=== PATIENT | female | born 1975 | race Asian ===

== ENCOUNTER 2019-04-15 13:49 | Emergency (ER) | payer OTHER ==
[~2019-04-15] VITALS: Ht 167.6 cm; Wt 116.1 kg
[2019-04-15 13:56] VITALS: TEMP 98
[2019-04-15 14:59] VITALS: BP 148/82
== END 2019-04-15 14:59 | disposition home or self-care (01) ==
LOC: ED 13:49
PROC: 2W03XYZ Change Other Device on Abdominal Wall (ICD-10-PCS; principal; 2019-04-15)
DX: Z43.3 Encounter for attention to colostomy (principal)
CPT/HCPCS: 99282